=== PATIENT | female | born 1975 | race Caucasian/White ===

== ENCOUNTER 2020-04-30 21:32 | Emergency (ER) | payer OTHER ==
[2020-04-30 21:40] VITALS: BMI 25.8
[2020-04-30 22:14] LABS: EPI CELLS 35 /uL (0-25.1); HCG,QUALITATIVE URINE Negative; HYALINE CASTS 4 /uL (0-3.1); URINE APPEARANCE TURBID; URINE BACTERIA >9,000 /uL (0-1359); URINE BILIRUBIN 2+ (NEGATIVE); URINE COLOR ORANGE; URINE GLUCOSE (UA) NEGATIVE (NEGATIVE); URINE KETONE NEGATIVE (NEGATIVE); URINE LEUK ESTERASE 3+ (NEGATIVE); URINE NITRITE POSITIVE (NEGATIVE); URINE PROTEIN 3+ (NEGATIVE); URINE WBC 5165 /uL (0-25.8)
[2020-04-30 22:36] VITALS: BP 124/87; PULSE 98; TEMP 98.5
[2020-04-30] MEDS ORDERED: ACETAMINOPHEN 500 MG TABLET (FP) PO ONE (22:36)
[2020-04-30] MEDS ORDERED: CEPHALEXIN MONOHYDRATE 500 MG CAPSULE (UD) PO ONE (22:36)
[2020-04-30] MEDS ORDERED: CEPHALEXIN MONOHYDRATE 500 MG CAPSULE (UD) ONE (22:37)
[2020-04-30] MEDS ORDERED: ACETAMINOPHEN 500 MG TABLET (FP) ONE (22:38)
--- NOTE | 2020-04-30 22:39 | PDOC ---
History of Present Illness - General Chief Complaint: Urinary Problem Stated Complaint: PAIN ON URINATION/ BACK PAIN Time Seen by Provider: 04/30/20 21:48 History Source: Patient Exam Limitations: No Limitations - History of Present Illness Initial Comments: 04/30/20 22:32 Patient is a 44-year-old female who presents to the ED with complaint of dysuria, frequency, urgency since yesterday. She is also complaining of nonspecific back pain which she was seen in the emergency department for yesterday. She had a lumbar spine x-ray which was negative for acute pathology. Patient states she had lab work earlier this week from her primary doctor and is waiting for the results. She denies any fevers or chills. She does admit to mild suprapubic pain but denies any significant abdominal pain. She denies any past medical history or allergies to medications. The patient admits to taking Pyridium with some help of her symptoms. Past History - Medical History Allergies/Adverse Reactions: Allergies Allergy/AdvReac Type Severity Reaction Status Date / Time No Known Allergies Allergy Verified 06/15/14 15:11 Home Medications: Ambulatory Orders Cefpodoxime Proxetil [Vantin -] 400 mg PO Q12H #14 tablet 06/17/14 Ondansetron [Ondansetron Odt] 8 mg PO Q8H PRN #15 tab.rapdis 06/17/14 Cephalexin [Keflex] 500 mg PO TID 7 Days #21 capsule 04/30/20 Anemia: No Asthma: No Cancer: No Cardiac Disorders: No CVA: No COPD: No CHF: No Dementia: No Diabetes: No GI Disorders: No Disorders: No HTN: No Hypercholesterolemia: No Liver Disease: No Seizures: No Thyroid Disease: No - Reproductive History Is Patient Now?: No - Immunization History Td Vaccination: Yes TDAP Vaccination: Yes Immunization Up to Date: Yes - Psycho-Social/Smoking History Smoking History: Never smoked Have you smoked in the past 12 months: No - Substance Abuse Hx (Audit-C & DAST Scrn) How often the patient has a drink containing alcohol: Never Score: In Men: 4 or > Positive; In Women: 3 or > Positive: 0 Screen Result (Pos requires Nsg. Audit-10AR): Negative In the last yr the pt used illegal drug/Rx for NonMed reason: No Score: Yes response is considered Positive: 0 Screen Result (Positive result requires Nsg. DAST-10): Negative Review of Systems - Review of Systems Comments:: 04/30/20 22:33 - Review of Systems Able to Perform ROS?: Yes Constitutional: No: Fever, Chills, Loss of Appetite, Night Sweats, Weakness HEENTM: No: Eye Pain, Vision changes, Ear Pain, Throat Pain, Throat Swelling, Mouth Pain, Difficulty Swallowing Respiratory: No: Cough, Shortness of Breath, Wheezing, Sputum Production Cardiac (ROS): No: Chest Pain, Chest Tightness, Palpitations, Irregular Heart Beat, Edema ABD/GI: No: Nausea, Vomiting, Abdominal Pain, Diarrhea : Positive dysuria, frequency, urgency. No hematuria. Musculoskeletal: No: Muscle Pain, Back Pain, Joint Pain, Muscle Weakness, Neck Pain Integumentary: No: Lesions, Rash Neurological: No: Headache, Numbness, Tingling, Weakness, Speech Difficulties *Physical Exam - Vital Signs Last Vital Signs Temp Pulse Resp BP Pulse Ox 98.1 F 111 H 19 157/83 97 04/30/20 21:36 04/30/20 21:36 04/30/20 21:36 04/30/20 21:36 04/30/20 21:36 - Physical Exam 04/30/20 22:33 - Physical Exam General Appearance: Nourished, Appropriately Dressed, No Distress HEENT: EOMI, Normal Voice, Hearing Grossly Normal Neck: Supple, No Lymphadenopathy (R), No Lymphadenopathy (L), No Rigidity, No Decreased range of motion Respiratory/Chest: Lungs Clear, Normal Breath Sounds. No Respiratory Distress, No Accessory Muscle Use Cardiovascular: Regular Rhythm, Regular Rate, S1, S2 Gastrointestinal/Abdominal: Normal Bowel Sounds, Soft. Non-tender, No Guarding, No Rebound, No Rigidity; No significant abdominal tenderness to palpation. Mild suprapubic tenderness to palpation. No significant CVA tenderness bilaterally. Diffuse lumbar back pain appreciated including tenderness over her left SI joint. Musculoskeletal: Normal Inspection. No Decreased Range of Motion Extremity: Normal Capillary Refill, Normal Inspection Integumentary: Normal Color, Dry. No Rash Neurologic: manager trade II-XII NML intact, Fully Oriented, Alert, Normal Mood/Affect, Normal Response ED Treatment Course - ADDITIONAL ORDERS Additional order review: Laboratory Results 04/30/20 22:00 Urine Color [place] Urine Appearance Turbid Urine pH 5.0 Ur Specific [place] 1.014 Urine Protein 3+ H Urine Glucose (UA) Negative Urine Ketones Negative Urine Blood 3+ H Urine Nitrite Positive H Urine Bilirubin 2+ H Urine Urobilinogen 1.0 Ur Leukocyte Esterase 3+ H Urine WBC (Auto) 5165 Urine Casts (Auto) 4 U Epithel Cells (Auto) 35 Urine Bacteria (Auto) >9,000 Urine HCG, Qual Negative Medical Decision Making - Medical Decision Making 04/30/20 22:35 Assessment: Patient is a 44-year-old female with diffuse lumbar back pain, dysuria, hematuria, frequency and urgency since yesterday. Plan: -UA, urine culture and urine ordered. Patient found to have a sign ificant UTI on urinalysis. Since she is having diffuse low back pain we will treat her as a pyelonephritis. She has a follow-up appointment with her primary doctor tomorrow to discuss her lab work. -Tylenol given in the ED -First dose of Keflex 500 mg p.o. given in the ED -Patient given strict return precautions -She understands and agrees with this treatment plan and she is stable for discharge. Discharge - Discharge Information Problems reviewed: Yes Clinical Impression/Diagnosis: UTI (urinary tract infection) Qualifiers: Urinary tract infection type: acute cystitis Hematuria presence: with hematuria Qualified Code(s): N30.01 - Acute cystitis with hematuria Condition: Stable Disposition: HOME - Additional Discharge Information Prescriptions: Cephalexin [Keflex] 500 mg PO TID 7 Days #21 capsule - Follow up/Referral Referrals: Nicole Branham MD [Primary Care Provider] - Call tomorrow (Be sure to call your primary doctor tomorrow to follow-up your lab work and for further evaluation.) - Patient Discharge Instructions Patient Printed Discharge Instructions: DI for Urinary Tract Infection (UTI) Additional Instructions: Get plenty of rest and drink plenty of fluids. Be sure to take your antibiotics as prescribed and complete the entire course. You can take Tylenol or ibuprofen for pain. Be sure to follow-up with your primary doctor within 1 to 2 days for repeat evaluation. Return for high fevers, shaking chills, profuse vomiting, worsening abdominal or back pain or any other worsening symptoms. - Post Discharge Activity Work/Back to School Note: Back to Work
[2020-05-01 00:11] LABS: URINE RBC 1058.1 /uL (0-23.9)
== END 2020-04-30 22:51 | disposition home or self-care (01) ==
LOC: JERFT 21:32
DX: N30.01 Acute cystitis with hematuria (principal)
CPT/HCPCS: 81003; 84703; 87086; 87186; 99283-25